=== PATIENT | female | born 1955 | race Two or more races ===

== ENCOUNTER 2024-02-19 22:04 | Emergency (ER) | payer MEDICAID ==
[~2024-02-19] VITALS: Ht 149.9 cm; Wt 57.8 kg
[2024-02-19 23:30] LABS: Urine Bacteria FEW /hpf (None Seen); Urine Blood 1+ /uL (Negative); Urine Clarity Clear (Clear); Urine Color Colorless (Yellow); Urine Protein, UAD Negative (Negative); Urine Specific Gravity 1.005 (1.001-1.035); Urine Urobilinogen Normal (Negative); Urine WBC 126 /hpf (0 - 5)
[2024-02-19 23:32] LABS: Basophils # (auto) 0 10 ^3/uL (0-0.2); Basophils % (auto) 0.2 % (0.0-2.0); Eosinophils # (auto) 0.3 10 ^3/uL (0-0.8); Eosinophils % (auto) 2.3 % (0.0-7.0); Hematocrit 35.7 % (36.0-46.0); Lymphocytes # (auto) 1.7 10 ^3/uL (0.4-5.4); Lymphocytes % (auto) 12.6 % (10.0-50.0); Mean Corpuscular Hemoglobin 31.2 pg (28.0-32.0); Mean Corpuscular Hgb Conc. 33.6 g/dL (32.0-36.0); Mean Corpuscular Volume 92.9 fL (80.0-100.0); Monocytes # (auto) 0.8 10 ^3/uL (0-1.3); Neutrophils # (auto) 10.5 10 ^3/uL (1.6-8.6); Neutrophils % (auto) 78.9 % (37.0-80.0); Red Blood Cells 3.84 10^6/uL (4.0-5.20); Red Cell Distribution Width 13.8 % (11.8-14.3); White Blood Cell 13.3 10^3/uL (4.4-10.8)
[2024-02-19] MEDS: ONDANSETRON ODT 4 MG TAB PO ONE (23:40)
[2024-02-19 23:41] LABS: Chloride 104 mmol/L (98-107); Potassium 4.1 mmol/L (3.5-5.1); Sodium 135 mmol/L (136-145)
[2024-02-19 23:42] LABS: Anion Gap 6 (5-15); Carbon Dioxide 25 mmol/L (20-30)
[2024-02-19] MEDS: levoFLOXacin 250 MG TAB PO ONE (23:42)
[2024-02-19] MEDS: HYDROcodone-ACET 10/325MG TAB PO ONE (23:42)
[2024-02-19] MEDS: KETOROLAC TROMETH 60MG/2ML VIAL IM ONE (23:46)
[2024-02-19 23:47] LABS: BUN/Creatinine Ratio 14.7 (10.0-20.0); Blood Urea Nitrogen 14 mg/dL (9-23); Glucose 132 mg/dL (74-106)
[2024-02-19 23:48] LABS: Lipase 64 U/L (12-53)
[2024-02-20] MEDS ORDERED: ZOFR4T PO (01:31)
[2024-02-20] MEDS ORDERED: IBUP-1454 PO (01:31)
[2024-02-20] MEDS ORDERED: ACET500T58 PO (01:31)
[2024-02-20] MEDS ORDERED: LEVO750T40 PO (01:31)
[2024-02-20 01:41] VITALS: BP 128/63; PULSE 73; RESP 18; TEMP 98.3; O2SAT 97
== END 2024-02-20 01:42 | disposition home or self-care (01) ==
LOC: ER 22:04
DX: N12 Tubulo-interstitial nephritis, not specified as acute or chronic (principal); Z87.442 Personal history of urinary calculi; Z88.2 Allergy status to sulfonamides; Z88.8 Allergy status to other drugs, medicaments and biological substances
CPT/HCPCS: 36415; 74176; 80048; 81001; 83690; 85025; 96372; 99285; J1885; Q0162